=== PATIENT | male | born 1985 | race Hispanic/Latino ===

== ENCOUNTER 2017-04-12 15:46 | Emergency (ER) | payer SELFPAY ==
[2017-04-12 15:53] VITALS: BP 143/89
--- NOTE | 2017-04-12 17:23 | Emergency Department Report ---
ED General Adult HPI - General Chief complaint: Pain General Stated complaint: NECK/LEFT SHOULDER PAIN Time Seen by Provider: 04/12/17 17:09 Source: patient Mode of arrival: Ambulatory Limitations: No Limitations - History of Present Illness Initial comments: Patient is a 32-year-old male who is presenting with left-sided neck shoulder pain for the last 3 weeks. Patient works in [employer] states he did not have any obvious trauma R neuro no falls however he has increased pain with movement of his shoulder. Patient denies any fevers chills nausea vomiting shortness of breath cough at this time. - Related Data Previous Rx's Medication Instructions Recorded Last Taken Type Fluticasone Propionate [Flonase] 2 sprays NS DAILY #1 spray.susp 01/27/13 Unknown Rx Ibuprofen [Motrin] 800 mg PO Q8HR PRN #20 tablet 04/12/17 Unknown Rx methOCARBAMOL [Robaxin TAB] 500 mg PO Q6H PRN #20 tablet 04/12/17 Unknown Rx Allergies Allergy/AdvReac Type Severity Reaction Status Date / Time No Known Allergies Allergy Verified 01/23/13 20:55 ED Review of Systems ROS: Stated complaint: NECK/LEFT SHOULDER PAIN Other details as noted in HPI Comment: All other systems reviewed and negative ED Past Medical Hx - Past Medical History Previous Medical History?: Yes Hx Congestive Heart Failure: No Hx Diabetes: No Hx Psychiatric Treatment: No Hx Asthma: No Hx COPD: No Hx HIV: No Additional medical history: Bronchitis - Surgical History Past Surgical History?: No - Social History Smoking Status: Former Smoker Substance Use Type: Alcohol - Medications Home Medications: Home Medications Medication Instructions Recorded Confirmed Last Taken Type Fluticasone Propionate [Flonase] 2 sprays NS DAILY #1 spray.susp 01/27/13 Unknown Rx Ibuprofen [Motrin] 800 mg PO Q8HR PRN #20 tablet 04/12/17 Unknown Rx methOCARBAMOL [Robaxin TAB] 500 mg PO Q6H PRN #20 tablet 04/12/17 Unknown Rx ED Physical Exam - General Limitations: No Limitations General appearance: alert, in no apparent distress - Head Head exam: Present: atraumatic, normocephalic - Eye Eye exam: Present: normal appearance - ENT ENT exam: Present: mucous membranes moist - Neck Neck exam: Present: normal inspection - Respiratory Respiratory exam: Present: normal lung sounds bilaterally. Absent: respiratory distress - Cardiovascular Cardiovascular Exam: Present: regular rate, normal rhythm. Absent: systolic murmur, diastolic murmur, rubs, gallop - GI/Abdominal GI/Abdominal exam: Present: soft, normal bowel sounds - Rectal Rectal exam: Present: deferred - Extremities Exam Extremities exam: Present: normal inspection - Back Exam Back exam: Present: normal inspection - Neurological Exam Neurological exam: Present: alert, oriented X3 - Psychiatric Psychiatric exam: Present: normal affect, normal mood - Skin Skin exam: Present: warm, dry, intact, normal color. Absent: rash ED Course Vital Signs 04/12/17 15:50 Temperature 97.6 F Pulse Rate 69 Respiratory 18 Rate Blood Pressure 143/89 O2 Sat by Pulse 97 Oximetry ED Medical Decision Making - Medical Decision Making Patient with musculoskeletal pain. Patient has no focal tenderness any bony area there is no deformity is no swelling. Patient was started on 800 mg Motrin and a muscle relaxant be discharged home Critical care attestation.: If time is entered above; I have spent that time in minutes in the direct care of this critically ill patient, excluding procedure time. ED Disposition Clinical Impression: Musculoskeletal arm pain Disposition: DC-01 TO HOME OR SELFCARE Is pt being admited?: No Does the pt Need Aspirin: No Condition: Stable Instructions: Musculoskeletal Pain (ED) Prescriptions: Ibuprofen [Motrin] 800 mg PO Q8HR PRN #20 tablet PRN Reason: Pain methOCARBAMOL [Robaxin TAB] 500 mg PO Q6H PRN #20 tablet PRN Reason: Pain Referrals: [facility] [Outside] - 3-5 Days
== END 2017-04-12 17:26 | disposition home or self-care (01) ==
LOC: ED 15:46
DX: M25.512 Pain in left shoulder (principal); Z87.891 Personal history of nicotine dependence
CPT/HCPCS: 99282

== ENCOUNTER 2017-06-22 09:35 | Outpatient (CLI) | payer OTHER ==
--- NOTE | 2017-06-22 17:10 | XRay Report ---
FINAL REPORT EXAM: XR SHOULDER 2+V LT HISTORY: NECK AND SHOULDER ISSUES TECHNIQUE: Three views left shoulder PRIORS: None. FINDINGS: No fractures are identified. No dislocation seen. There is corticated bony density the lateral tip of the clavicle likely congenital variant or sequela of remote trauma. Adjacent bony and soft tissue structures are unremarkable. IMPRESSION: Corticated bony density the tip of the clavicle likely sequela of remote trauma or congenital variant. No acute findings
--- NOTE | 2017-06-22 18:04 | XRay Report ---
FINAL REPORT EXAM: XR SPINE CERVICAL 2-3V HISTORY: NECK AND SHOULDER ISSUES TECHNIQUE: Cervical spine 3 views PRIORS: None. FINDINGS: Vertebral bodies demonstrate normal height and alignment. The disk spaces are within normal limits. The facet joints demonstrate normal alignment. The spinous processes are intact. Craniocervical junction is unremarkable. C1 and C2 are intact. IMPRESSION: Negative cervical spine series.
== END 2017-06-22 09:36 | disposition home or self-care (01) ==
LOC: XRAY 09:35
PROVIDERS: ATTEND Internal Medicine
DX: M25.812 Other specified joint disorders, left shoulder (principal); M53.82 Other specified dorsopathies, cervical region
CPT/HCPCS: 72040